=== PATIENT | male | born 1980 ===

== ENCOUNTER 2021-12-05 01:51 | Emergency (ER) | payer OTHER ==
[~2021-12-05] VITALS: Ht 170 cm; Wt 77.0 kg
[2021-12-05] MEDS ORDERED: LIDOCAINE/EPI 2% 1:100,00 (XYLOCAINE) 20 ML VIAL INJ ONE (02:30)
[2021-12-05] MEDS ORDERED: LIDOCAINE/EPI 2% 1:200,00 (XYLOCAINE) 10 ML VIAL ONE (02:37)
[2021-12-05] MEDS ORDERED: TETANUS,DIPTH,PERTUSS P/F (BOOSTRIX) 0.5 ML VIAL IM ONE (02:45)
[2021-12-05] MEDS ORDERED: LIDOCAINE 1% INJ 20 ML VIAL ONE (03:51)
[2021-12-05] MEDS ORDERED: KETOROLAC 30 MG/ML VIAL ONE (03:51)
[2021-12-05] MEDS ORDERED: KETOROLAC 30 MG/ML VIAL IM ONE (03:55)
--- NOTE | 2021-12-05 04:20 | ED Upper Extremity ---
General Chief Complaint: Laceration Stated Complaint: RT ARM LAC Nursing Triage Note: Laceration to the right forearm from box knife while at work. Source: patient Exam Limitations: language barrier Allergies and Home Medications Allergies Coded Allergies: No Known Drug Allergies (Unverified , 12/05/21) Physical Exam Vital Signs Vital Signs - First Documented 12/05/21 02:05 Temp 37.0 Pulse 89 Resp 22 B/P (MAP) 126/ Pulse Ox 100 O2 Delivery Room Air Capillary Refill : Less Than 3 Seconds Height, Weight, BMI Height: '" Weight: lbs. oz. kg; 26.00 BMI Method: Progress/Results/Core Measures Results/Orders My Orders Orders - CHETAN RAJAN MD Lidocaine/Epi 2% 1:100,000 (Xylocaine/Ep (12/05/21 02:30) Dipht,Pertuss(Acell),Tet Adult (Boostrix (12/05/21 02:45) Lidocaine/Epi Mpf 2% 1:200,000 (Xylocain (12/05/21 02:37) Ketorolac Injection (Toradol Injection) (12/05/21 03:51) Lidocaine 1% Inj 20 Ml (Xylocaine 1% Inj (12/05/21 03:51) Ketorolac Injection (Toradol Injection) (12/05/21 03:55) Sulfamethoxazole/Trimet Ds Tab (Bactrim (12/05/21 04:30) Medications Given in ED Current Medications Medications Dose Ordered Sig/Saeed Route Start Time Stop Time Status Last Admin Dose Admin Diphtheria/ Tetanus/Acell Pertussis 0.5 ml ONCE ONCE IM 12/05/21 02:45 12/05/21 02:46 DC 12/05/21 03:19 0.5 ML Ketorolac Tromethamine 30 mg ONCE ONCE IM 12/05/21 03:55 12/05/21 03:56 DC 12/05/21 03:57 30 MG Vital Signs/I&O 12/05/21 02:05 Temp 37.0 Pulse 89 Resp 22 B/P (MAP) 126/ Pulse Ox 100 O2 Delivery Room Air Progress Progress Note : Progress Note 8 Vicryl 3-0 14 gayla 15 cm Departure Impression Primary Impression: Laceration of right forearm Qualified Codes: S51.811A - Laceration without foreign body of right forearm, initial encounter Disposition: 01 HOME, SELF-CARE Condition: Improved Departure-Patient Inst. Decision time for Depature: 04:20 Referrals: UNKNOWN (PCP/Family) Primary Care Physician Patient Instructions: Laceration Repair With Gayla ED Add. Discharge Instructions: Keep the wound clean and dry except for normal showering. Do not submerge until after gayla are removed. Keep the wound covered while at work, while sleeping, and when in dirty environments. You may leave open to air when awake and at rest in a clean environment. Monitor for signs of infection such as increasing redness, increasing swelling, puslike drainage, or fever. Return to care promptly if you notice the symptoms. You should have the gayla removed in 14 days. Contact the number on your occupational health paperwork to arrange for staple removal. You may take ibuprofen up to 600 mg every 6 hours and/or Tylenol (acetaminophen) up to 1000 mg every 6 hours as needed for pain. Call with any other questions or concerns. All discharge instructions reviewed with patient and/or family. Voiced understanding. CHETAN RAJAN MD Dec 05, 2021 04:20
[2021-12-05] MEDS ORDERED: TRIM/SULFAMETH 160/800 (SEPTRA DS) TAB PO ONE (04:30)
[2021-12-05 04:41] VITALS: BP 129/85
== END 2021-12-05 04:46 | disposition home or self-care (01) ==
LOC: ER 01:57
DX: S51.811A Laceration without foreign body of right forearm, initial encounter (principal); Z23 Encounter for immunization; Z28.310 Unvaccinated for COVID-19; W26.0XXA Contact with knife, initial encounter; Y92.59 Other trade areas as the place of occurrence of the external cause; Y99.0 Civilian activity done for income or pay
CPT/HCPCS: 90715

== ENCOUNTER 2022-01-28 09:14 | Outpatient (RCR) | payer OTHER | END 2022-01-28 10:00 | disposition home or self-care (01) | PROVIDERS: ATTEND Registered Nurse Critical Care Medicine | DX: Z04.2 Encounter for examination and observation following work accident (principal); S51.811D Laceration without foreign body of right forearm, subsequent encounter; X58.XXXD Exposure to other specified factors, subsequent encounter ==